=== PATIENT | female | born 1985 | race African-American/Black ===

== ENCOUNTER → 2019-10-24 | Outpatient (CLI) | payer OTHER ==
--- NOTE | 2019-10-24 16:49 | RAD ---
Transabdominal transvaginal sonography of the pelvis Clinical indications: Dysmenorrhea. Menorrhagia. Transabdominal sonography: The uterus is anteverted in position. The longitudinal and AP and transverse dimensions of the uterus are 10.2 cm and 4.0 cm and 5.9 cm respectively. The endometrial canal is not abnormally thickened. However, the endometrial canal is poorly visualized. Therefore, transvaginal sonography will be performed. No adnexal mass is seen. The right ovary appears normal. The left ovary is not visualized. Transvaginal sonography: There is a small hypoechoic area within the anterior mid body of uterus measuring 15 mm in size consistent a small uterine fibroid. Endometrial canal measures ninth mm in thickness and no hyperemia is evident. The right ovary contains a corpus luteum cyst measuring 2.1 cm in size. The right ovary measures 2.7 cm and 2.7 cm and 2.4 cm in size. Color Doppler flow is seen within the right ovary. The left ovary measures 2.2 cm and 1.3 cm and 2.0 cm in size and is normal. Color Doppler flow is seen within left ovary. No adnexal mass is evident. 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 IMPRESSION: 15 mm small anterior uterine fibroid. Corpus luteum cyst of the right ovary. Electronically signed by: Bobby Wright MD (10/24/2019 4:46 PM) [facility]
== END | disposition home or self-care (01) ==
LOC: US 09:47
PROVIDERS: ATTEND Obstetrics & Gynecology
DX: N83.11 Corpus luteum cyst of right ovary (principal); D25.9 Leiomyoma of uterus, unspecified; N92.0 Excessive and frequent menstruation with regular cycle; N94.6 Dysmenorrhea, unspecified
CPT/HCPCS: 76830; 76856